=== PATIENT | female | born 1990 | race Caucasian/White ===

== ENCOUNTER 2019-02-23 11:33 | Emergency (ER) | payer SELFPAY | END 2019-02-23 12:35 | disposition home or self-care (01) | PROVIDERS: Emergency Provider Physician Assistant; Visit Provider Physician Assistant | DX: R07.89 Other chest pain (principal); F41.9 Anxiety disorder, unspecified ==

== ENCOUNTER 2019-06-04 11:51 | Emergency (ER) | payer SELFPAY ==
[2019-06-04 11:56] VITALS: RESP 16; TEMP 36.6; O2SAT 96; BMI 37.5
--- NOTE | 2019-06-04 12:03 | W.ED.FEMALGU ---
HPI - Female Genitourinary General: Chief complaint: Urogenital-Female Stated complaint: UTI FOR 6 DAYS Time Seen by Provider: 06/04/19 11:58 History of Present Illness: HPI Narrative: Patient is a 28-year-old female who comes to the ED with UTI symptoms. Patient was having lower back and bilateral flank pain that moved to lower pelvic region for the past 5 days. Patient denies any heavy lifting or trauma to cause any lower back pain. Patient describes some discomfort when she urinates. Today she said she woke up and she felt really hot and was sweaty she took her temperature at home and the first readings at 106 ?F and the second reading said 101 ?F. The back and bilateral flank pain is not present today. She denies having any hematuria, nausea, vomiting, diarrhea, constipation. She took an tylenol last night. Patient is currently taking [id number] Azo for UTIs. Associated symptoms: Deny abdominal pain, headache(s) or nausea Review of Systems Const: Reports: fever; Denies: chills or fatigue Eyes: Denies: change in vision or eye discomfort ENMT: Denies: throat pain, painful swallowing, nasal discharge or nasal congestion Card: Denies: chest pain, palpitations, edema, swelling of feet/ankles, shortness of breath on exertion or shortness of breath when lying down Resp: Denies: shortness of breath, productive cough or non-productive cough GI: Denies: abdominal pain, nausea, vomiting, diarrhea, constipation or blood in stool : Reports: flank pain and painful urination; Denies: blood in urine Musc: Reports: back pain (lower back); Denies: neck pain or extremity swelling Skin/Breast: Denies: rash or new lesion Neuro: Denies: headache, numbness in extremities or weakness in extremities [facility] ED PFSH: Social History Smoking and tobacco status: current every day smoker Physical Exam Narrative: EXAM NARRATIVE: Patient is a 28-year-old female who is sitting comfortably in the exam bed when I enter the room. She appears in no acute distress or pain. Const: COMMON NORMALS: oriented x3 HENMT: COMMON NORMALS: normocephalic HEAD & SCALP: normocephalic MOUTH: oral and palatal mucosa normal THROAT: posterior oropharynx normal and uvula midline Neck/C-Spine: COMMON NORMALS: supple GENERAL: Yes normal visual inspection Lymph: LYMPHATIC: no lymphadenopathy noted (no cervical lymph nodes palpated.) Resp: COMMON NORMALS: normal respiratory effort, no retractions, no use of accessory muscles and clear to auscultation bilaterally EFFORT & INSPECTION: Yes able to speak in complete sentences AUSCULTATION: clear to auscultation bilaterally Cardio: COMMON NORMALS: regular rate, regular rhythm, S1 normal heart sound, S2 normal heart sound, no gallops, no clicks, no murmurs and peripheral pulses 2+ throughout RATE: regular rate RHYTHM: regular rhythm HEART SOUNDS: S1 normal and S2 normal PERIPHERAL PULSES: pulses 2+ throughout GI: COMMON NORMALS: normal to inspection, nondistended, normoactive bowel sounds, soft to palpation, non-tender and no masses PALPATION: Yes soft : COMMON NORMALS: Yes no CVA tenderness BLADDER/KIDNEY EXAM: Yes no CVA tenderness Back/Pelvis: COMMON NORMALS: no CVA tenderness Extremity: COMMON NORMALS: normal to inspection Neuro: COMMON NORMALS: oriented x3 and moves all extremities Skin: COMMON NORMALS: no rashes or lesions noted GENERAL SKIN EXAM: no rashes or lesions noted and dry skin Course Vital Signs: Vital signs: Vital Signs Temperature 98 F 06/04/19 15:11 Pulse Rate 97 06/04/19 15:11 Respiratory Rate 16 06/04/19 15:11 Blood Pressure 133/82 06/04/19 15:11 Pulse Oximetry 99 06/04/19 15:11 MDM - Female MDM Narrative: Medical decision making narrative: Patient is a 28-year-old female who comes to the ED with UTI symptoms with fever and flank pain. Physical exam showed a 28-year-old female sitting comfortably on the exam bed when entering the room. She was in no acute distress or pain. CBC was remarkable for an elevated white blood cell count of 13.3 and CMP showed a potassium of 3.3. Her urinalysis was postive for nitrates, plethora of RBCs and WBCs and 3+ bacteria. Due to patient's symptoms and urinalysis and elevated white blood cell count she was diagnosed with mild case of pyelonephritis. She was given IV fluids and an IV antibiotic while here on the ED. She was also given a dose of potassium orally. She was discharged with a prescription for levofloxacin and instructed to take full course of antibiotics. I told her to drink plenty of fluids and stay hydrated and to take Tylenol or ibuprofen for pain or fevers. She is going to follow-up with her PCP in 7 days. She can return to the ED if symptoms worsen. Patient understood and agreed with plan. Lab Data: Attestation: I reviewed the patient's lab results. Labs: Lab Results 06/04/19 06/04/19 06/04/19 Range/Units 12:31 12:31 12:37 WBC 13.3 H (4.0-10.0) 10^3/ uL RBC 4.13 (4.1-5.3) 10^6/u L Hgb 13.1 (11.5-15.3) g/dL Hct 39.2 (37.0-47.0) % MCV 94.9 (81-99) fL MCH 31.7 (28.0-34.0) pg MCHC 33.4 (30.0-36.0) g/dL RDW 12.0 L (12.1-15.1) % Plt Count 363 (130-400) 10^3/c mm MPV 9.2 (7.4-10.4) fL Neut % (Auto) 83.7 % Lymph % (Auto) 6.9 % [place] % (Auto) 8.6 % Eos % (Auto) 0.0 % Baso % (Auto) 0.3 % Neut # (Auto) 11.1 H (1.8-7.7) 10^3/u L Lymph # (Auto) 0.9 (0.8-4.8) 10^3/u L [place] # (Auto) 1.2 H (0.2-0.9) 10^3/u L Eos # (Auto) 0.0 (0.0-0.8) 10^3/u L Baso # (Auto) 0.0 (0.0-0.1) 10^3/u L Nucleated RBC % (a uto) 0 % Nucleated RBCs # 0.0 /100WBC Sodium 135 L (136-145) mmol/L Potassium 3.3 L (3.5-5.1) mmol/L Chloride 101 (98-107) mmol/L Carbon Dioxide 21 L (22-29) mmol/L Anion Gap 16.3 (5-19) BUN 6 (6-20) mg/dL Creatinine 0.9 (0.5-0.9) mg/dL GFR Calculation 75.1 L (90-130) mL/min Glucose 179 H (65-115) mg/dL Calculated Osmolal ity 280 L (285-295) mOsm/k g Calcium 9.6 (8.5-10.5) mg/dL Total Bilirubin 0.8 (0.15-1.2) mg/dL AST 22 (0-32) U/L ALT 31 (0-33) U/L Alkaline Phosphata se 134 H (35-105) IU/L Total Protein 7.4 (6.6-8.7) g/dL Albumin 3.7 (3.5-5.2) g/dL Globulin 3.7 (1.3-4.6) g/dL HCG, Qual Negative (Negative) Urine Color (Yellow) Urine Appearance (CLEAR) Urine pH (5-7) Ur Specific Gravit y (1.005-1.030) Urine Protein (Negative) Urine Glucose (UA) (Normal) Urine Ketones (Negative) Urine Blood (Negative) Urine Nitrate (Negative) Urine Bilirubin (NEGATIVE) Urine Urobilinogen (Negative) mg/dL Ur Leukocyte Derba ase (Negative) Urine RBC (0-2) /hpf Urine WBC (0-5) /hpf Ur Squamous Epith Cells (0-5) Urine Bacteria (NONE) 06/04/19 Range/Units 12:37 WBC (4.0-10.0) 10^3/ uL RBC (4.1-5.3) 10^6/u L Hgb (11.5-15.3) g/dL Hct (37.0-47.0) % MCV (81-99) fL MCH (28.0-34.0) pg MCHC (30.0-36.0) g/dL RDW (12.1-15.1) % Plt Count (130-400) 10^3/c mm MPV (7.4-10.4) fL Neut % (Auto) % Lymph % (Auto) % [place] % (Auto) % Eos % (Auto) % Baso % (Auto) % Neut # (Auto) (1.8-7.7) 10^3/u L Lymph # (Auto) (0.8-4.8) 10^3/u L [place] # (Auto) (0.2-0.9) 10^3/u L Eos # (Auto) (0.0-0.8) 10^3/u L Baso # (Auto) (0.0-0.1) 10^3/u L Nucleated RBC % (a uto) % Nucleated RBCs # /100WBC Sodium (136-145) mmol/L Potassium (3.5-5.1) mmol/L Chloride (98-107) mmol/L Carbon Dioxide (22-29) mmol/L Anion Gap (5-19) BUN (6-20) mg/dL Creatinine (0.5-0.9) mg/dL GFR Calculation (90-130) mL/min Glucose (65-115) mg/dL Calculated Osmolal ity (285-295) mOsm/k g Calcium (8.5-10.5) mg/dL Total Bilirubin (0.15-1.2) mg/dL AST (0-32) U/L ALT (0-33) U/L Alkaline Phosphata se (35-105) IU/L Total Protein (6.6-8.7) g/dL Albumin (3.5-5.2) g/dL Globulin (1.3-4.6) g/dL HCG, Qual (Negative) Urine Color Yellow (Yellow) Urine Appearance Cloudy (CLEAR) Urine pH 5 (5-7) Ur Specific Gravit y 1.000 L (1.005-1.030) Urine Protein Trace (Negative) Urine Glucose (UA) Norm (Normal) Urine Ketones 1+ H (Negative) Urine Blood 2+ H (Negative) Urine Nitrate Positive H (Negative) Urine Bilirubin Neg (NEGATIVE) Urine Urobilinogen 4 H (Negative) mg/dL Ur Leukocyte Debra ase 2+ H (Negative) Urine RBC 25-40 H (0-2) /hpf Urine WBC >100 H (0-5) /hpf Ur Squamous Epith Cells 40-55 H (0-5) Urine Bacteria 3+ H (NONE) Discharge Plan Discharge Patient Disposition: Home, Self-Care Clinical Impression: Pyelonephritis Condition: Stable Prescriptions: New levofloxacin 750 mg tablet 750 mg PO DAILY 7 Days Qty: 7 RF: 0 No Action Tylenol 325 mg Tablet 325 mg PO QID PRN (Reason: Fever) RF: 0 citalopram 20 mg tablet 20 mg PO DAILY RF: 0 ibuprofen 200 mg Tablet 200 mg PO Q6H PRN (Reason: Pain) RF: 0 Discharge Orders: Discharge Order (Routine); Ordered 06/04/19 Ordered By: Kaleb Pandya Discharge Diet: Regular Discharge Activity: Resume usual activity Patient Instructions: Pyelonephritis Activity Restrictions/Additional Instructions: Follow-up with your PCP in 7 days for reevaluation. Take full course of antibiotics as prescribed. Drink plenty of fluids and stay hydrated. Take ibuprofen or Tylenol as needed for fever or pain. 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
[2019-06-04 12:38] LABS: Basophils % 0.3 %; Hematocrit 39.2 % (37.0-47.0); Hemoglobin 13.1 g/dL (11.5-15.3); Lymphocytes # 0.9 10^3/uL (0.8-4.8); Lymphocytes % 6.9 %; Mean Corpuscular HGB Conc 33.4 g/dL (30.0-36.0); Mean Corpuscular Hemoglobin 31.7 pg (28.0-34.0); Mean Corpuscular Volume 94.9 fL (81-99); Mean Platelet Volume 9.2 fL (7.4-10.4); Monocytes # 1.2 10^3/uL (0.2-0.9); Monocytes % 8.6 %; Neutrophils # 11.1 10^3/uL (1.8-7.7); Neutrophils % 83.7 %; Nucleated Red Blood Cells % 0 %; Platelet Count 363 10^3/cmm (130-400); Red Blood Count 4.13 10^6/uL (4.1-5.3); White Blood Count 13.3 10^3/uL (4.0-10.0)
[2019-06-04 12:54] LABS: Alanine Aminotransferase 31 U/L (0-33); Albumin Level 3.7 g/dL (3.5-5.2); Alkaline Phosphatase 134 IU/L (35-105); Anion Gap 16.3 (5-19); Aspartate Amino Transferase 22 U/L (0-32); Blood Urea Nitrogen 6 mg/dL (6-20); Calcium 9.6 mg/dL (8.5-10.5); Carbon Dioxide 21 mmol/L (22-29); Chloride 101 mmol/L (98-107); Globulin 3.7 g/dL (1.3-4.6); Glomerular Filtration Rate 75.1 mL/min (90-130); Glucose 179 mg/dL (65-115); Osmolality Calculated 280 mOsm/kg (285-295); Potassium 3.3 mmol/L (3.5-5.1); Sodium 135 mmol/L (136-145); Total Bilirubin 0.8 mg/dL (0.15-1.2); Total Protein 7.4 g/dL (6.6-8.7)
[2019-06-04 13:02] LABS: HCG Qualitative Urine. Negative (Negative)
[2019-06-04 13:21] LABS: Blood Urine 2+ (Negative); Glucose Urine UA Norm (Normal); Ketones Urine 1+ (Negative); Nitrate Urine Positive (Negative); Protein Urine Trace (Negative); Urine Appearance Cloudy (CLEAR); Urine Color Yellow (Yellow); pH Urine 5 (5-7)
[2019-06-04 13:22] LABS: Add Urine Culture? Yes; Bacteria Urine 3+; Bilirubin Urine Neg (NEGATIVE); Leukocyte Esterase Urine 2+ (Negative); RBC Urine 25-40 /hpf (0-2); Squamous Epithelial Cell Urine 40-55 (0-5); Urobilinogen Urine 4 mg/dL (Negative); WBC Urine >100 /hpf (0-5)
[2019-06-04] MEDS: sodium chloride 0.9% 1,000 ML 999 ML IV (13:50)
[2019-06-04] MEDS: cefTRIAXone 1,000 MG in sodium chloride 0.9% (plus) 50 ML 100 MG IV (13:50)
[2019-06-04 15:11] VITALS: BP 133/82; PULSE 97; RESP 16; TEMP 36.6; O2SAT 99
== END 2019-06-04 15:12 | disposition home or self-care (01) ==
PROVIDERS: Emergency Provider Physician Assistant
DX: N12 Tubulo-interstitial nephritis, not specified as acute or chronic (principal); F17.200 Nicotine dependence, unspecified, uncomplicated
CPT/HCPCS: 12345; 36415; 80053; 81001; 81025; 85025; 87077; 87086; 87186; 96360; 96365; 99283; J0696; J7030